=== PATIENT | male | born 1980 | race Caucasian/White ===

== ENCOUNTER → 2021-11-14 13:59 | Outpatient (CLI) | payer OTHER, SELFPAY ==
[2021-11-14 14:57] LABS: Cholesterol 195 mg/dL (140-199); HDL Cholesterol 36 mg/dL (40-60); LDL Cholesterol Calculated 103 mg/dL (<100); Triglycerides 278 mg/dL (35-150)
== END ==
PROVIDERS: PCP Internal Medicine; Referring Provider Internal Medicine; Visit Provider Internal Medicine
DX: Z13.220 Encounter for screening for lipoid disorders (principal); Z13.6 Encounter for screening for cardiovascular disorders
CPT/HCPCS: 36415; 80061

== ENCOUNTER → 2022-04-13 09:41 | Outpatient (CLI) | payer OTHER, SELFPAY ==
[2022-04-13 11:53] LABS: COVID19 -Nasal RAPID Negative (Negative)
== END ==
PROVIDERS: PCP Internal Medicine; Visit Provider Surgery
DX: Z20.822 Contact with and (suspected) exposure to COVID-19 (principal); Z01.812 Encounter for preprocedural laboratory examination
CPT/HCPCS: 87635; C9803

== ENCOUNTER 2022-04-14 12:31 | Day surgery (SDC) | payer OTHER, SELFPAY ==
--- NOTE | 2022-04-14 | PATH_ITS ---
[facility] Accession Number: [id number] . 01 Material submitted: . colon - DESCENDING COLON POLYP . 01 Diagnosis: Descending Colon Polyp: Inflammatory polyp. MRV 04/16/2022 1546 Local . 01 Electronically signed: . Alison Smart MD, Pathologist NPI- [id number] . 01 Gross description: . DESCENDING COLON POLYP: Received in formalin is 1 fragment(s) of tang, soft tissue measuring 0.3 x 0.2 x 0.2 cm submitted entirely in 1 cassette(s) /CPE 04/15/2022 1056 Local . 01 Pathologist provided ICD-10: K63.5 . 01 CPT . 503179 Specimen Comment: A courtesy copy of this report has been sent to [phone] Performed at: 01 [facility] [address] [place] [address] [id number] MD Brian Moctezuma MD Phone: [phone]
[2022-04-14 13:30] VITALS: BP 149/90; PULSE 90; RESP 16; TEMP 36.9; O2SAT 100; BMI 30.4
[2022-04-14] MEDS: SODIUM CHLORIDE 0.9% 1,000 ML 125 ML IV (13:56)
--- NOTE | 2022-04-14 14:34 | PM.HP.1 ---
History of Present Illness History of Present Illness Date Patient Seen: 04/14/22 Time Patient Seen: 14:34 Chief complaint: LAC Narrative: 41-year-old male with intermittent rectal bleeding here for diagnostic colonoscopy. Please refer to the H& P from February 2022 for further detail. Patient History Surgical History S/P correction of deviated nasal septum S/P tonsillectomy and adenoidectomy Family & Social History Family History Grandfather Cancer History of heart disease Social History: household members spouse Tobacco & Substance use: Smoking Status Former smoker alcohol intake current Substance Use Type does not use Meds Home Medications and Allergies Home Medications Medication Instructions Recorded Confirmed Type hydrocortisone acetate 25 mg 25 mg [place] BID #24 ea 11/14/21 03/05/22 Rx rectal suppository (Anusol-HC) Allergies Allergy/AdvReac Type Severity Reaction Status Date / Time No Known Drug Allergies Allergy Verified 03/05/22 11:54 Exam Vital Signs (past 8 hours): - 04/14/22 13:30 Temperature 98.4 F Pulse Rate 90 Respiratory Rate 16 Blood Pressure 149/90 H Pulse Oximetry 100 Oxygen Delivery Method Room Air Oxygen Delivery Method Room Air Narrative Exam Narrative: General adult male alert oriented no acute distress Assessment & Plan Assessment & Plan narrative: 41-year-old male with rectal bleeding here for diagnostic colonoscopy. Technical details were discussed. Risks, benefits, alternatives explained. Risks including but not limited to myocardial infarction, aspiration, bleeding, pain, missed lesion, incomplete examination, need for further radiographic studies, colonic perforation, and need for major abdominal surgery were discussed. All questions were answered to their satisfaction, and they are in agreement with this plan. Time Spent With Patient Critical Care time: I spent a total of [] minutes of critical care time on this patient's care today; this time is exclusive of procedural time.
--- NOTE | 2022-04-14 14:39 | PM.OP.COLON ---
Operative Date/Time/Diagnoses Date of procedure: 04/14/22 Time of procedure: 14:39 Pre-op diagnosis: Rectal bleeding Post-op diagnosis: same Procedure & Clinicians Study performed: Colonoscopy Same procedure as scheduled: Yes Indications: Rectal bleeding Surgeon: Avinash Mills Procedure Notes Procedure in detail: The history and physical was performed/updated and the patient is ASA class is 1. The procedure was discussed in detail with the patient. Potential risks complications including infection, bleeding, missed diagnosis, perforation, need for surgery, and were explained. Their questions were answered and informed consent was obtained. Patient was brought to the procedure room and placed standard monitoring equipment. The patient's vital signs were monitored continuously throughout the entire procedure. Prior to starting time-out was performed. The patient was placed in the left lateral recumbent position. Procedural sedation was administered by anesthesia. Examination began with a thorough inspection of the perianal area there was no evidence of fissures, fistulae, external hemorrhoids or cutaneous malignancy. The colonoscopy scope was then placed into the anal canal and was advanced to the cecum, which was identified by the ileocecal valve, the appendiceal orifice and the confluence of the taenia. The scope was then slowly withdrawn examining colon thoroughly in all directions, irrigating it of any residual stool. FINDINGS 1. Descending colon-with 5 mm polyp removed with cold snare 2. Internal hemorrhoids grade 2 Following completion of the colonoscopy hemorrhoidal banding was performed. The anoscope was placed in the the anal canal and there were grade 2 internal hemorrhoids of the left lateral and right posterior column. The pedicle was grasped elevated and then doubly ligated with bands at its base. The scope was then removed. The patient tolerated the procedure well. They will be discharged once criteria are met. The prep was of good/excellent quality. The withdrawl time was 7 minutes. Specimen(s): other (Descending colonic polyp) Complications: none Impression: Internal him Post-procedure Recommendations: High fiber diet Plan for aftercare: Metamucil twice daily. Follow-up 2 weeks Disposition: same day surgery
[2022-04-14 15:11] VITALS: BP 137/87; PULSE 87; RESP 15; TEMP 36.2; O2SAT 97
[2022-04-14 15:18] VITALS: BP 135/96; PULSE 81; RESP 18; O2SAT 97
[2022-04-14 15:21] VITALS: BP 128/79; PULSE 78; RESP 15; TEMP 36.9; O2SAT 97
[2022-04-14 15:36] VITALS: BP 150/95; PULSE 79; RESP 18; TEMP 36.9; O2SAT 99
== END 2022-04-14 15:54 | disposition home or self-care (01) ==
PROVIDERS: PCP Internal Medicine; Referring Provider Surgery; Visit Provider Surgery
PROC: 0DJD8ZZ Inspection of Lower Intestinal Tract, Via Natural or Artificial Opening Endoscopic (ICD-10-PCS; CPT 45378; principal; 2022-04-14 14:30)
DX: K62.5 Hemorrhage of anus and rectum (principal); K64.1 Second degree hemorrhoids; K51.40 Inflammatory polyps of colon without complications
CPT/HCPCS: 45385; 46221; J2704; J3010